=== PATIENT | male | born 1985 | race Caucasian/White ===

== ENCOUNTER 2019-05-19 16:21 | Emergency (ER) | payer OTHER ==
[2019-05-19] MEDS ORDERED: HYDROmorphone 1 MG/ML CARPUJECT IVP STA ×2 (16:41→17:13)
--- NOTE | 2019-05-19 16:42 | ED Physician Documentation ---
History of Present Illness - Stated complaint Stated Complaint: MALE , ENLARGED RT TESTICLE - Chief complaint Chief Complaint: General - History obtained from History obtained from: Patient - History of Present Illness Timing: Today (Severe sudden onset right testicular pain 2 hours ago. He is never had this before. No/N/V.) Review of Systems Ten Systems: 10 systems reviewed and negative Constitutional: denies: Fever, Chills Respiratory: denies: Dyspnea, Cough GI: denies: Abdominal Pain, Nausea, Vomiting, Constipation, Diarrhea PD PAST MEDICAL HISTORY - Past Medical History Past Medical History: No - Present Medications Home Medications: Ambulatory Orders Medication Instructions Recorded Confirmed No Known Home Medications 05/19/19 05/19/19 - Allergies Allergies/Adverse Reactions: Allergies Allergy/AdvReac Type Severity Reaction Status Date / Time No Known Drug Allergies Allergy Verified 05/19/19 16:37 - Social History Does the pt have substance abuse?: No - Family History Family history: reports: Non contributory PD ED PE NORMAL - Vitals Vital signs reviewed: Yes - General General: Alert and oriented X 3, Other (Writhing in pain, very uncomfortable) - HEENT HEENT: PERRL, EOMI - Neck Neck: Supple, no meningeal sign, No bony TTP - Cardiac Cardiac: RRR, No murmur - Respiratory Respiratory: No respiratory distress, Clear bilaterally - Abdomen Abdomen: Soft, Non tender - Male Male : Other (No cremaster reflex on either side, the testicle is very tender. Hard to tell the lie because he is so tender. Unable to "open the book" on initial evaluation due to pain.) - Derm Derm: Normal color, Warm and dry - Neuro Neuro: Alert and oriented X 3, Normal speech Results - Vitals Vitals: Vital Signs - 24 hr 05/19/19 05/19/19 05/19/19 16:34 17:23 17:30 Temperature 36.6 C Heart Rate 92 71 71 Respiratory 22 18 Rate Blood Pressure 136/87 H 135/86 H O2 Saturation 100 100 100 Oxygen O2 Source Room air - Labs Labs: Laboratory Tests 05/19/19 05/19/19 05/19/19 16:50 16:50 16:50 WBC 8.1 RBC 4.76 Hgb 13.2 L Hct 39.5 L MCV 83.0 MCH 27.7 MCHC 33.4 RDW 13.3 Plt Count 288 MPV 9.6 Neut # (Auto) 4.4 Lymph # (Auto) 2.6 [place] # (Auto) 0.8 Eos # (Auto) 0.3 Baso # (Auto) 0.1 Absolute Nucleated RBC 0.00 Nucleated RBC % 0.0 PT 13.2 H INR 1.2 Sodium 139 Potassium 3.2 L Chloride 104 Carbon Dioxide 22 Anion Gap 13.0 BUN 16 Creatinine 0.9 Estimated GFR (MDRD) 98 Glucose 119 H Calcium 8.8 Total Bilirubin 0.6 AST 17 ALT 13 Alkaline Phosphatase 52 Total Protein 7.9 Albumin 4.5 Globulin 3.4 Albumin/Globulin Ratio 1.3 Lipase 27 Urine Color Urine Clarity Urine pH Ur Specific [place] Urine Protein Urine Glucose (UA) Urine Ketones Urine Occult Blood Urine Nitrite Urine Bilirubin Urine Urobilinogen Ur Leukocyte Esterase Ur Microscopic Review Urine Culture Comments 05/19/19 16:55 WBC RBC Hgb Hct MCV MCH MCHC RDW Plt Count MPV Neut # (Auto) Lymph # (Auto) [place] # (Auto) Eos # (Auto) Baso # (Auto) Absolute Nucleated RBC Nucleated RBC % PT INR Sodium Potassium Chloride Carbon Dioxide Anion Gap BUN Creatinine Estimated GFR (MDRD) Glucose Calcium Total Bilirubin AST ALT Alkaline Phosphatase Total Protein Albumin Globulin Albumin/Globulin Ratio Lipase Urine Color YELLOW Urine Clarity CLEAR Urine pH 6.0 Ur Specific [place] 1.025 Urine Protein NEGATIVE Urine Glucose (UA) NEGATIVE Urine Ketones NEGATIVE Urine Occult Blood NEGATIVE Urine Nitrite NEGATIVE Urine Bilirubin NEGATIVE Urine Urobilinogen 0.2 (NORMAL) Ur Leukocyte Esterase NEGATIVE Ur Microscopic Review NOT INDICATED Urine Culture Comments NOT INDICATED PD MEDICAL DECISION MAKING - ED course ED course: 33-year-old gentleman with an acute hemiscrotum. Tried again to "open the book" after pain medication it was unsuccessful. Prelim report from the senior behavioral scientist with less flow on the right. Presentation is consistent with torsion and a call was placed for all the stat urology transfer at 5:[address] Castillo to [facility] at [id number]. [place] were completed. I asked for a stat rig given the diagnosis. Departure - Departure Disposition: 02 Transfer Acute Care Hosp Clinical Impression: Testicular torsion Condition: Serious
[2019-05-19 16:58] LABS: BASOPHILS # (AUTO) 0.1 10^3/uL (0.0-0.1); BASOPHILS % (AUTO) 0.7 %; EOSINOPHILS # (AUTO) 0.3 10^3/uL (0.0-0.7); EOSINOPHILS % (AUTO) 3.7 %; HGB - HEMOGLOBIN 13.2 g/dL (14.0-18.0); LYMPHOCYTES # (AUTO) 2.6 10^3/uL (1.5-3.5); LYMPHOCYTES % (AUTO) 31.8 %; MEAN CORPUSCULAR HEMOGLOBIN 27.7 pg (27.0-31.0); MEAN CORPUSCULAR HGB CONC 33.4 g/dL (32.0-36.0); MEAN PLATELET VOLUME 9.6 fL (7.4-11.4); MONOCYTES # (AUTO) 0.8 10^3/uL (0.0-1.0); MONOCYTES % (AUTO) 9.5 %; NEUTROPHILS # (AUTO) 4.4 10^3/uL (1.5-6.6); NEUTROPHILS % (AUTO) 54.1 %; PLT - PLATELET COUNT 288 10^3/uL (130-450); RED BLOOD COUNT 4.76 10^6/uL (4.70-6.10); RED CELL DISTRIBUTION WIDTH 13.3 % (12.0-15.0); WHITE BLOOD COUNT 8.1 x10^3/uL (4.8-10.8)
[2019-05-19 17:02] LABS: BILIRUBIN,URINE NEGATIVE (NEGATIVE); GLUCOSE, URINE (UA) NEGATIVE (NEGATIVE); KETONES,URINE (UA) NEGATIVE (NEGATIVE); LEUKOCYTE ESTERASE, URINE NEGATIVE (NEGATIVE); NITRITE,URINE NEGATIVE (NEGATIVE); OCCULT BLOOD,URINE NEGATIVE (NEGATIVE); PROTEIN,URINE NEGATIVE (NEGATIVE); UROBILINOGEN,URINE 0.2 (NORMAL) E.U./dL (NORMAL)
[2019-05-19 17:03] LABS: CLARITY,URINE CLEAR (CLEAR)
[2019-05-19 17:04] LABS: INR 1.2 (0.8-1.2); PT - PROTHROMBIN TIME 13.2 secs (9.9-12.6)
[2019-05-19 17:12] LABS: ALBUMIN 4.5 g/dL (3.2-5.5); ALBUMIN/GLOBULIN RATIO 1.3 (1.0-2.2); BILIRUBIN,TOTAL 0.6 mg/dL (0.2-1.0); CALCIUM 8.8 mg/dL (8.5-10.3); CREATININE 0.9 mg/dL (0.6-1.2); TOTAL PROTEIN 7.9 g/dL (6.7-8.2)
[2019-05-19] MEDS ORDERED: SODIUM CHLORIDE 0.9% 1,000 ML IV ONE (17:13)
--- NOTE | 2019-05-19 17:34 | Ultrasound Report ---
Reason: testicular pain Procedure Date: 05/19/2019 Accession Number: [id number] / [id number] Procedure: US - Testicle w/Doppler CPT Code: FULL RESULT: EXAM: SCROTAL ULTRASOUND EXAM DATE: 05/19/2019 05:27 PM. CLINICAL HISTORY: Right testicular pain and swelling for 1 hour. COMPARISON: None. TECHNIQUE: Real-time scanning was performed with static images obtained. Color-flow images were utilized. FINDINGS: Right: Testis: 5.4 x 2.9 x 3.3 cm. Normal size and echotexture. No mass or calcification. Decreased blood flow, with no central blood cell identified. Epididymis: 3.5 x 0.6 x 1.2 cm. Normal size and echotexture. No mass. Decreased blood flow. Hydrocele: Moderate. Varicocele: None. Left: Testis: 5.3 x 2.1 x 3.2 cm. Normal size and echotexture. No mass, calcification, or abnormal blood flow. Epididymis: 4.0 x 1.2 x 0.4 cm. Normal size and echotexture. No mass or abnormal blood flow. Hydrocele: Mild. Varicocele: None. IMPRESSION: Decreased blood flow to the right testicle and epididymis compatible with torsion. [facility]
[2019-05-19 17:42] VITALS: BP 135/86
[2019-05-19] MEDS ORDERED: KETOROLAC 30 MG/ML VIAL IVP STA (17:42)
== END 2019-05-19 17:50 | disposition short-term general hospital (02) ==
LOC: ED 16:21
DX: N44.00 Torsion of testis, unspecified (principal)
CPT/HCPCS: 36415; 76870; 80053; 81003; 83690; 85025; 85610; 93975; 96374; 96375; 99283; 99285; J1170; 81001; 87086

== ENCOUNTER 2019-05-19 17:58 | Outpatient (CLI) | payer OTHER | END 2019-05-19 17:59 | disposition short-term general hospital (02) | LOC: EMS 17:58 | PROVIDERS: ATTEND Surgery | DX: N44.00 Torsion of testis, unspecified (principal) | CPT/HCPCS: A0425; A0426 ==